=== PATIENT | male | born 1955 | race Two or more races ===

== ENCOUNTER 2021-10-10 18:12 | Emergency (ER) | payer MEDICARE, OTHER ==
[~2021-10-10] VITALS: Ht 175.3 cm; Wt 90.7 kg
[2021-10-10 19:16] LABS: Basophils # (auto) 0 10 ^3/uL (0-0.2); Basophils % (auto) 0.6 % (0.0-2.0); Eosinophils # (auto) 0 10 ^3/uL (0-0.8); Eosinophils % (auto) 0.4 % (0.0-7.0); Hematocrit 41.3 % (41.0-53.0); Hemoglobin 14.7 g/dL (13.5-17.5); Lymphocytes # (auto) 0.5 10 ^3/uL (0.4-5.4); Lymphocytes % (auto) 8.7 % (10.0-50.0); Mean Corpuscular Hemoglobin 33.6 pg (28.0-32.0); Mean Corpuscular Hgb Conc. 35.7 g/dL (32.0-36.0); Mean Corpuscular Volume 94.2 fL (80.0-100.0); Monocytes # (auto) 0.4 10 ^3/uL (0-1.3); Monocytes % (auto) 6.2 % (0.0-12.0); Neutrophils % (auto) 84.1 % (37.0-80.0); Red Blood Cells 4.38 10^6/uL (4.5-5.90); Red Cell Distribution Width 13.5 % (11.8-14.3); White Blood Cell 5.9 10^3/uL (4.4-10.8)
[2021-10-10 19:36] LABS: Albumin 3.3 g/dL (3.4-5.0); Calcium 8.4 mg/dL (8.5-10.1); Potassium 3.4 mmol/L (3.5-5.1)
[2021-10-10 19:40] LABS: BUN/Creatinine Ratio 13.3; Total Protein 7.2 g/dL (6.4-8.2)
[2021-10-10 20:53] VITALS: BP 136/70
== END 2021-10-10 21:07 | disposition home or self-care (01) ==
LOC: ER 18:12 → EDBD 18:12 → ER 20:45
DX: R56.9 Unspecified convulsions (principal); R41.82 Altered mental status, unspecified; E11.9 Type 2 diabetes mellitus without complications
CPT/HCPCS: 36415; 70450; 80053; 80320; 85025

== ENCOUNTER 2021-12-07 17:08 | Inpatient (IN) | payer MEDICARE, OTHER ==
[~2021-12-07] VITALS: Ht 170.2 cm; Wt 101.6 kg
[2021-12-07] MEDS ORDERED: ROCURONIUM 10MG/ML 10ML VIAL IV ONE ×2 (17:27→17:45)
[2021-12-07] MEDS ORDERED: ETOMIDATE (2MG/ML) 20ML VIAL IV ONE ×2 (17:27→17:45)
[2021-12-07] MEDS ORDERED: IOHEXOL 300 MG/ML 100ML BOTTLE IJ ONE (17:38)
[2021-12-07] MEDS ORDERED: PROPOFOL 100 ML IV SCH (17:45)
[2021-12-07] MEDS ORDERED: DEXTROSE 50% SYRINGE 50 ML IV ONE (18:10)
[2021-12-07] MEDS ORDERED: D5W/SOD CHLO 0.9% 1,000 ML IV ONE (18:30)
[2021-12-07] MEDS ORDERED: ACETAMINOPHEN 650 mg PER 20.3 mL UD GT ONE (19:00)
[2021-12-07] MEDS ORDERED: DEXTROSE (50%) 50ML SYRG IV ONE (19:00)
[2021-12-07 19:26] LABS: Urine Bacteria NONE SEEN /hpf (None Seen); Urine Blood TRACE /uL (Negative); Urine Mucus FEW (None Seen); Urine Specific Gravity 1.023 (1.001-1.035); Urine WBC 5 /hpf (0 - 3)
[2021-12-07 19:29] LABS: Basophils # (auto) 0 10 ^3/uL (0-0.2); Basophils % (auto) 0.2 % (0.0-2.0); Eosinophils # (auto) 0 10 ^3/uL (0-0.8); Hematocrit 48.4 % (41.0-53.0); Hemoglobin 16.4 g/dL (13.5-17.5); Lymphocytes # (auto) 0.4 10 ^3/uL (0.4-5.4); Lymphocytes % (auto) 4.3 % (10.0-50.0); Mean Corpuscular Hemoglobin 33.4 pg (28.0-32.0); Mean Corpuscular Hgb Conc. 33.9 g/dL (32.0-36.0); Mean Corpuscular Volume 98.6 fL (80.0-100.0); Monocytes # (auto) 0.8 10 ^3/uL (0-1.3); Monocytes % (auto) 7.5 % (0.0-12.0); Neutrophils # (auto) 9.3 10 ^3/uL (1.6-8.6); Red Blood Cells 4.91 10^6/uL (4.5-5.90); Red Cell Distribution Width 13.2 % (11.8-14.3); White Blood Cell 10.5 10^3/uL (4.4-10.8)
[2021-12-07 19:44] LABS: Alcohol, Urine < 3.0 mg/dL (0-10); Barbiturate Scree,Urine NEGATIVE (NEGATIVE); Benzodiazephine Screen, Urine NEGATIVE (NEGATIVE); Cannabinoid Screen, Urine POSITIVE (NEGATIVE); Cocaine Screen, Urine NEGATIVE (NEGATIVE); Opiate Scree,Urine NEGATIVE (NEGATIVE); Phencyclidine Screen, Urine NEGATIVE (NEGATIVE)
[2021-12-07 19:48] LABS: INR 1.34 (0.9-1.15); Partial Thromboplastin Time 24.5 sec (23.6-33.0)
[2021-12-07 19:51] LABS: Albumin 2.9 g/dL (3.4-5.0); Calcium 8.5 mg/dL (8.5-10.1); Magnesium 2.1 mg/dL (1.6-2.6); Potassium 3.2 mmol/L (3.5-5.1)
[2021-12-07 19:53] LABS: Amphetamine Screen, Urine NEGATIVE (NEGATIVE)
[2021-12-07 19:54] LABS: BUN/Creatinine Ratio 16.9; Bilirubin, Total 2.9 mg/dL (0.2-1.0); Phosphorus 4.9 mg/dL (2.5-4.90); Total Protein 7.2 g/dL (6.4-8.2)
[2021-12-07 20:00] VITALS: BP_SYST 165; BP_SYST 93; BP_DIAS 68; BP_DIAS 99
[2021-12-07] MEDS ORDERED: POTASSIUM CHL 20MEQ/100ML 100 ML IV ONE (20:15)
[2021-12-07] MEDS ORDERED: fentaNYL Drip 2500mCg/250mlNS 250 ML IV ONE (20:31)
[2021-12-07] MEDS: fentaNYL Drip 2500mCg/250mlNS 250 ML IV SCH (20:44)
[2021-12-07] MEDS ORDERED: POTASSIUM EFFERVESENT TAB 25 MEQ GT ONE (21:15)
[2021-12-07] MEDS ORDERED: VANCOMYCIN 1GM/250ML 250 ML IV ONE (21:30)
[2021-12-07] MEDS ORDERED: CEFTRIAXONE SODIUM 2 GM in D5W 5% 50 ML IV ONE (21:30)
[2021-12-07] MEDS ORDERED: AMPICILLIN SOD 2GM INJ 2 GM in SODIUM CHL 0.9% 100 ML IV ONE (21:30)
[2021-12-07] MEDS ORDERED: DexAMETHasone SOD PHOS 10MG/1ML VIAL INJ IV ONE (21:30)
[2021-12-07 22:00] VITALS: BP 129/109
[2021-12-07] MEDS ORDERED: VANCOMYCIN PER PHARMACY 0 MG IV SCH (22:30)
[2021-12-07] MEDS ORDERED: ALBUMIN 25% 100 ML IV ONE (22:30)
[2021-12-07] MEDS ORDERED: ONDANSETRON HCL 4 MG/2 ML VIAL IV PRN (22:30)
[2021-12-07] MEDS ORDERED: DEXTROSE (50%) 50ML SYRG IV PRN (22:30)
[2021-12-07] MEDS ORDERED: ACETAMINOPHEN 650 MG RECT SUPP PR PRN (22:30)
[2021-12-07] MEDS ORDERED: MIDAZOLAM DRIP 50 mg/50mL 50 ML IV ONE (23:30)
[2021-12-07] MEDS ORDERED: NITROGLYCERIN 0.4 MG SL TAB SL PRN (23:45)
[2021-12-07] MEDS ORDERED: MORPHINE SULFATE INJ 2 MG/ml SYRG IV PRN (23:45)
[2021-12-08] VITALS (69 sets, daily range): BP systolic 83–129; BP diastolic 56–74
[2021-12-08] MEDS ORDERED: LACTULOSE 10g/15ml SOLN 473ML PR SCH
[2021-12-08] MEDS: MIDAZOLAM DRIP 50 mg/50mL 50 ML IV SCH ×5 (00:02→21:50)
[2021-12-08] MEDS ORDERED: cefTRIAXone SOD 1,000 MG VL ONE (01:00)
[2021-12-08] MEDS: LACTULOSE 20Gm/30ML SOLN GT SCH ×3 (05:53→17:57)
[2021-12-08] MEDS: ACCU-CHEK COMFORT CURVE STRIP VI SCH ×4 (06:49→22:00)
[2021-12-08] MEDS: InsuLIN REG 1unit/0.01ml Soln (100units/ml) SC SCH ×2 (06:52→11:54)
[2021-12-08 07:40] LABS: Basophils # (auto) 0 10 ^3/uL (0-0.2); Eosinophils # (auto) 0 10 ^3/uL (0-0.8); Monocytes # (auto) 0.6 10 ^3/uL (0-1.3); Red Cell Distribution Width 13.7 % (11.8-14.3)
[2021-12-08 07:45] LABS: Basophils % (auto) 0.2 % (0.0-2.0); Hematocrit 43.1 % (41.0-53.0); Hemoglobin 14.7 g/dL (13.5-17.5); Lymphocytes # (auto) 0.9 10 ^3/uL (0.4-5.4); Lymphocytes % (auto) 9.5 % (10.0-50.0); Mean Corpuscular Hemoglobin 34.2 pg (28.0-32.0); Mean Corpuscular Hgb Conc. 34.1 g/dL (32.0-36.0); Mean Corpuscular Volume 100.3 fL (80.0-100.0); Monocytes % (auto) 6.4 % (0.0-12.0); Neutrophils # (auto) 7.7 10 ^3/uL (1.6-8.6); Neutrophils % (auto) 83.9 % (37.0-80.0); White Blood Cell 9.1 10^3/uL (4.4-10.8)
[2021-12-08 07:57] LABS: Potassium 3.6 mmol/L (3.5-5.1)
[2021-12-08 08:05] LABS: Albumin 2.8 g/dL (3.4-5.0); Bilirubin, Total 2.6 mg/dL (0.2-1.0); Calcium 7.9 mg/dL (8.5-10.1); Total Protein 6.5 g/dL (6.4-8.2)
[2021-12-08] MEDS ORDERED: VANCOMYCIN 1GM/250ML 250 ML IV ONE (09:15)
[2021-12-08] MEDS ORDERED: CEFTRIAXONE SODIUM 2 GM in D5W 5% 50 ML IV SCH (10:00)
[2021-12-08] MEDS ORDERED: FAMOTIDINE (10MG/ML) 2ML VL IV ONE (10:30)
[2021-12-08] MEDS: ENOXAPARIN SOD 40 MG/0.4 ML SYRINGE SC SCH (10:52)
[2021-12-08] MEDS: PIPERACILLIN-TAZOB 3.375GM 100 ML IV SCH ×2 (11:53→17:57)
[2021-12-08] MEDS ORDERED: ACETAMINOPHEN 650 mg PER 20.3 mL UD PO PRN (17:45)
[2021-12-08] MEDS: fentaNYL Drip 2500mCg/250mlNS 250 ML IV SCH (18:10)
[2021-12-08] MEDS: SODIUM CHLORIDE 0.9% 1,000 ML IV SCH (18:11)
[2021-12-08] MEDS: VANCOMYCIN 1GM/250ML 250 ML IV SCH (19:54)
[2021-12-08] MEDS ORDERED: InsuLIN REG 1unit/0.01ml Soln (100units/ml) SC SCH (22:00)
[2021-12-09] VITALS (98 sets, daily range): BP systolic 81–148; BP diastolic 50–89
[2021-12-09] MEDS: PIPERACILLIN-TAZOB 3.375GM 100 ML IV SCH ×5 (00:19→23:36)
[2021-12-09 04:33] LABS: Basophils # (auto) 0 10 ^3/uL (0-0.2); Lymphocytes # (auto) 0.8 10 ^3/uL (0.4-5.4); Monocytes # (auto) 0.5 10 ^3/uL (0-1.3)
[2021-12-09 04:36] LABS: Basophils % (auto) 0.7 % (0.0-2.0); Eosinophils # (auto) 0 10 ^3/uL (0-0.8); Eosinophils % (auto) 0.7 % (0.0-7.0); Hematocrit 41.6 % (41.0-53.0); Hemoglobin 14.3 g/dL (13.5-17.5); Lymphocytes % (auto) 12.7 % (10.0-50.0); Mean Corpuscular Hemoglobin 35.2 pg (28.0-32.0); Mean Corpuscular Hgb Conc. 34.4 g/dL (32.0-36.0); Mean Corpuscular Volume 102.1 fL (80.0-100.0); Monocytes % (auto) 7.8 % (0.0-12.0); Neutrophils # (auto) 4.9 10 ^3/uL (1.6-8.6); Neutrophils % (auto) 78.1 % (37.0-80.0); Red Blood Cells 4.07 10^6/uL (4.5-5.90); Red Cell Distribution Width 13.8 % (11.8-14.3); White Blood Cell 6.3 10^3/uL (4.4-10.8)
[2021-12-09] MEDS: VANCOMYCIN 1GM/250ML 250 ML IV SCH (04:54)
[2021-12-09 05:01] LABS: Albumin 2.4 g/dL (3.4-5.0); Calcium 7.5 mg/dL (8.5-10.1); Potassium 3.3 mmol/L (3.5-5.1)
[2021-12-09 05:04] LABS: BUN/Creatinine Ratio 35.4; Bilirubin, Direct 1.6 mg/dL (0-0.2); Bilirubin, Total 2.3 mg/dL (0.2-1.0); Phosphorus 1.9 mg/dL (2.5-4.90); Total Protein 6.1 g/dL (6.4-8.2)
[2021-12-09] MEDS: ACCU-CHEK COMFORT CURVE STRIP VI SCH ×4 (06:52→22:04)
[2021-12-09] MEDS: ENOXAPARIN SOD 40 MG/0.4 ML SYRINGE SC SCH (09:20)
[2021-12-09] MEDS: MIDAZOLAM DRIP 50 mg/50mL 50 ML IV SCH (09:20)
[2021-12-09] MEDS: FAMOTIDINE (10MG/ML) 2ML VL IV SCH (09:20)
[2021-12-09] MEDS: SODIUM CHLORIDE 0.9% 1,000 ML IV SCH (10:40)
[2021-12-09] MEDS ORDERED: POTASSIUM CHL 20MEQ/100ML 100 ML IV ONE (12:00)
[2021-12-09] MEDS ORDERED: VANCOMYCIN 1GM/250ML 250 ML IV SCH (13:00)
[2021-12-09] MEDS: ACETAMINOPHEN 650 mg PER 20.3 mL UD PO PRN ×2 (16:40→22:37)
[2021-12-10] VITALS (48 sets, daily range): BP systolic 100–150; BP diastolic 51–92
[2021-12-10 04:05] LABS: Basophils # (auto) 0 10 ^3/uL (0-0.2); Basophils % (auto) 0.6 % (0.0-2.0); Eosinophils # (auto) 0.1 10 ^3/uL (0-0.8); Eosinophils % (auto) 1.1 % (0.0-7.0); Hematocrit 45.7 % (41.0-53.0); Hemoglobin 15.3 g/dL (13.5-17.5); Lymphocytes % (auto) 14.5 % (10.0-50.0); Mean Corpuscular Hemoglobin 33.8 pg (28.0-32.0); Mean Corpuscular Hgb Conc. 33.4 g/dL (32.0-36.0); Mean Corpuscular Volume 101.1 fL (80.0-100.0); Monocytes # (auto) 0.6 10 ^3/uL (0-1.3); Monocytes % (auto) 9.1 % (0.0-12.0); Neutrophils # (auto) 5.3 10 ^3/uL (1.6-8.6); Neutrophils % (auto) 74.7 % (37.0-80.0); Red Blood Cells 4.52 10^6/uL (4.5-5.90); Red Cell Distribution Width 13.3 % (11.8-14.3); White Blood Cell 7.1 10^3/uL (4.4-10.8)
[2021-12-10 04:34] LABS: Albumin 2.2 g/dL (3.4-5.0); Bilirubin, Direct 1.7 mg/dL (0-0.2); Potassium 3.7 mmol/L (3.5-5.1)
[2021-12-10 04:37] LABS: BUN/Creatinine Ratio 31.7; Bilirubin, Total 2.4 mg/dL (0.2-1.0); Total Protein 6.5 g/dL (6.4-8.2)
[2021-12-10] MEDS: PIPERACILLIN-TAZOB 3.375GM 100 ML IV SCH ×3 (05:47→17:30)
[2021-12-10] MEDS: ACCU-CHEK COMFORT CURVE STRIP VI SCH ×4 (05:47→21:49)
[2021-12-10] MEDS: SODIUM CHLORIDE 0.9% 1,000 ML IV SCH (05:59)
[2021-12-10] MEDS: fentaNYL Drip 2500mCg/250mlNS 250 ML IV SCH ×2 (07:41→20:15)
[2021-12-10] MEDS: FAMOTIDINE (10MG/ML) 2ML VL IV SCH (09:32)
[2021-12-10] MEDS: ENOXAPARIN SOD 40 MG/0.4 ML SYRINGE SC SCH (09:32)
[2021-12-10] MEDS ORDERED: DEXTROSE (50%) 50ML SYRG IV PRN (12:00)
[2021-12-10] MEDS: InsuLIN REG 1unit/0.01ml Soln (100units/ml) SC SCH ×2 (17:24→21:50)
[2021-12-10] MEDS: ACETAMINOPHEN 650 mg PER 20.3 mL UD PO PRN (21:49)
[2021-12-10] MEDS: MIDAZOLAM DRIP 50 mg/50mL 50 ML IV SCH (23:30)
[2021-12-11] VITALS (39 sets, daily range): BP systolic 104–152; BP diastolic 67–115
[2021-12-11] MEDS: PIPERACILLIN-TAZOB 3.375GM 100 ML IV SCH ×4 (00:13→17:26)
[2021-12-11 04:18] LABS: Basophils # (auto) 0 10 ^3/uL (0-0.2); Basophils % (auto) 0.4 % (0.0-2.0); Eosinophils # (auto) 0.1 10 ^3/uL (0-0.8); Eosinophils % (auto) 1.5 % (0.0-7.0); Hemoglobin 15.1 g/dL (13.5-17.5); Lymphocytes # (auto) 1.1 10 ^3/uL (0.4-5.4); Lymphocytes % (auto) 16.2 % (10.0-50.0); Mean Corpuscular Hemoglobin 33.9 pg (28.0-32.0); Mean Corpuscular Hgb Conc. 33.5 g/dL (32.0-36.0); Monocytes # (auto) 0.8 10 ^3/uL (0-1.3); Monocytes % (auto) 11.2 % (0.0-12.0); Neutrophils % (auto) 70.7 % (37.0-80.0); Nucleated Red Blood Cells % 0.1 %; Red Blood Cells 4.46 10^6/uL (4.5-5.90); Red Cell Distribution Width 13.6 % (11.8-14.3); White Blood Cell 7.1 10^3/uL (4.4-10.8)
[2021-12-11] MEDS: SODIUM CHLORIDE 0.9% 1,000 ML IV SCH ×2 (04:35→12:24)
[2021-12-11 04:46] LABS: Albumin 2.1 g/dL (3.4-5.0); BUN/Creatinine Ratio 33.3; Bilirubin, Total 2.2 mg/dL (0.2-1.0); Calcium 8.2 mg/dL (8.5-10.1); Total Protein 6.4 g/dL (6.4-8.2)
[2021-12-11] MEDS: InsuLIN REG 1unit/0.01ml Soln (100units/ml) SC SCH ×4 (05:39→22:12)
[2021-12-11] MEDS: ACCU-CHEK COMFORT CURVE STRIP VI SCH ×4 (05:39→22:09)
[2021-12-11] MEDS: FAMOTIDINE (10MG/ML) 2ML VL IV SCH (08:37)
[2021-12-11] MEDS: ENOXAPARIN SOD 40 MG/0.4 ML SYRINGE SC SCH (08:37)
[2021-12-11] MEDS: ACETAMINOPHEN 650 mg PER 20.3 mL UD PO PRN (12:24)
[2021-12-11] MEDS: fentaNYL Drip 2500mCg/250mlNS 250 ML IV SCH (19:34)
[2021-12-11] MEDS ORDERED: PHENYTOIN DILANTIN IV ONE (20:45)
[2021-12-11] MEDS ORDERED: SODIUM CHL 0.9% IV ONE (20:45)
[2021-12-11] MEDS ORDERED: LORazepam 2MG/ML-1ML VIAL ONE (22:43)
[2021-12-11] MEDS: MIDAZOLAM DRIP 50 mg/50mL 50 ML IV SCH (23:30)
[2021-12-12] VITALS (94 sets, daily range): BP systolic 120–151; BP diastolic 51–88
[2021-12-12] MEDS: PIPERACILLIN-TAZOB 3.375GM 100 ML IV SCH ×4 (00:19→17:24)
[2021-12-12] MEDS: PHENYTOIN SODIUM 50 MG/ML 2ML VIAL IV SCH ×4 (00:19→21:40)
[2021-12-12 05:20] LABS: Albumin 2.2 g/dL (3.4-5.0); BUN/Creatinine Ratio 41.2; Basophils # (auto) 0 10 ^3/uL (0-0.2); Basophils % (auto) 0.1 % (0.0-2.0); Bilirubin, Direct 1.2 mg/dL (0-0.2); Bilirubin, Total 1.4 mg/dL (0.2-1.0); Calcium 8.2 mg/dL (8.5-10.1); Eosinophils # (auto) 0 10 ^3/uL (0-0.8); Hematocrit 41.8 % (41.0-53.0); Hemoglobin 14.3 g/dL (13.5-17.5); Lymphocytes # (auto) 0.6 10 ^3/uL (0.4-5.4); Lymphocytes % (auto) 8.7 % (10.0-50.0); Mean Corpuscular Hemoglobin 34.2 pg (28.0-32.0); Mean Corpuscular Hgb Conc. 34.2 g/dL (32.0-36.0); Mean Corpuscular Volume 100.2 fL (80.0-100.0); Monocytes # (auto) 0.7 10 ^3/uL (0-1.3); Neutrophils % (auto) 82.2 % (37.0-80.0); Potassium 3.9 mmol/L (3.5-5.1); Red Blood Cells 4.17 10^6/uL (4.5-5.90); Red Cell Distribution Width 13.3 % (11.8-14.3); Total Protein 6.6 g/dL (6.4-8.2); White Blood Cell 7.3 10^3/uL (4.4-10.8)
[2021-12-12] MEDS: SODIUM CHLORIDE 0.9% 1,000 ML IV SCH ×2 (05:20→22:00)
[2021-12-12] MEDS: ACCU-CHEK COMFORT CURVE STRIP VI SCH ×4 (05:57→21:41)
[2021-12-12] MEDS: InsuLIN REG 1unit/0.01ml Soln (100units/ml) SC SCH ×4 (05:59→21:48)
[2021-12-12] MEDS: FAMOTIDINE (10MG/ML) 2ML VL IV SCH (09:34)
[2021-12-12] MEDS: ENOXAPARIN SOD 40 MG/0.4 ML SYRINGE SC SCH (09:34)
[2021-12-12] MEDS ORDERED: LACTULOSE 20Gm/30ML SOLN NG ONE (11:30)
[2021-12-12 11:39] LABS: INR 1.32 (0.9-1.15)
[2021-12-12] MEDS: FOLIC ACID 1 MG, MULTIPLE VITAMIN 10 ML, MAGNESIUM SULF SDV 50% 8 MEQ, THIAMINE INJ 100... INJ SCH ×5 (12:43)
[2021-12-12] MEDS: ACETAMINOPHEN 650 mg PER 20.3 mL UD PO PRN (17:25)
[2021-12-12] MEDS: fentaNYL Drip 2500mCg/250mlNS 250 ML IV SCH (20:15)
[2021-12-12] MEDS: LACTULOSE 20Gm/30ML SOLN NG SCH (21:40)
[2021-12-12] MEDS: MIDAZOLAM DRIP 50 mg/50mL 50 ML IV SCH (23:30)
[2021-12-13] VITALS (101 sets, daily range): BP systolic 89–239; BP diastolic 47–176
[2021-12-13] MEDS: PIPERACILLIN-TAZOB 3.375GM 100 ML IV SCH ×4 (00:47→18:01)
[2021-12-13] MEDS: LORazepam 2MG/ML-1ML VIAL IV PRN ×2 (02:59→03:14)
[2021-12-13] MEDS: MIDAZOLAM DRIP 50 mg/50mL 50 ML IV SCH (03:22)
[2021-12-13 04:17] LABS: Basophils # (auto) 0 10 ^3/uL (0-0.2); Basophils % (auto) 0.3 % (0.0-2.0); Eosinophils # (auto) 0 10 ^3/uL (0-0.8); Eosinophils % (auto) 0.2 % (0.0-7.0); Hematocrit 40.5 % (41.0-53.0); Hemoglobin 13.7 g/dL (13.5-17.5); Lymphocytes % (auto) 12.9 % (10.0-50.0); Mean Corpuscular Hgb Conc. 33.9 g/dL (32.0-36.0); Mean Corpuscular Volume 100.3 fL (80.0-100.0); Monocytes % (auto) 12.3 % (0.0-12.0); Neutrophils # (auto) 5.9 10 ^3/uL (1.6-8.6); Neutrophils % (auto) 74.3 % (37.0-80.0); Red Blood Cells 4.04 10^6/uL (4.5-5.90); Red Cell Distribution Width 12.9 % (11.8-14.3); White Blood Cell 7.9 10^3/uL (4.4-10.8)
[2021-12-13 04:34] LABS: Albumin 2.1 g/dL (3.4-5.0); Calcium 8.3 mg/dL (8.5-10.1); Potassium 3.5 mmol/L (3.5-5.1)
[2021-12-13 04:35] LABS: BUN/Creatinine Ratio 40.8
[2021-12-13 04:38] LABS: Bilirubin, Total 1.2 mg/dL (0.2-1.0); Total Protein 6.1 g/dL (6.4-8.2)
[2021-12-13 04:45] LABS: Bilirubin, Direct 0.9 mg/dL (0-0.2)
[2021-12-13] MEDS: fentaNYL Drip 2500mCg/250mlNS 250 ML IV SCH (04:53)
[2021-12-13] MEDS: PHENYTOIN SODIUM 50 MG/ML 2ML VIAL IV SCH ×3 (06:13→21:54)
[2021-12-13] MEDS: ACCU-CHEK COMFORT CURVE STRIP VI SCH ×4 (06:13→21:54)
[2021-12-13] MEDS: InsuLIN REG 1unit/0.01ml Soln (100units/ml) SC SCH ×4 (06:16→21:54)
[2021-12-13] MEDS: LACTULOSE 20Gm/30ML SOLN NG SCH ×2 (09:51→21:54)
[2021-12-13] MEDS: FAMOTIDINE (10MG/ML) 2ML VL IV SCH (09:51)
[2021-12-13] MEDS: ENOXAPARIN SOD 40 MG/0.4 ML SYRINGE SC SCH (09:52)
[2021-12-13] MEDS: FOLIC ACID 1 MG, MULTIPLE VITAMIN 10 ML, MAGNESIUM SULF SDV 50% 8 MEQ, THIAMINE INJ 100... INJ SCH ×5 (12:00)
[2021-12-13] MEDS: SODIUM CHLORIDE 0.9% 1,000 ML IV SCH (15:08)
[2021-12-14] VITALS (102 sets, daily range): BP systolic 93–128; BP diastolic 58–81
[2021-12-14] MEDS: PIPERACILLIN-TAZOB 3.375GM 100 ML IV SCH ×5 (00:03→23:39)
[2021-12-14] MEDS: MIDAZOLAM DRIP 50 mg/50mL 50 ML IV SCH ×4 (00:07→20:55)
[2021-12-14 04:04] LABS: Basophils # (auto) 0 10 ^3/uL (0-0.2); Basophils % (auto) 0.6 % (0.0-2.0); Eosinophils # (auto) 0.1 10 ^3/uL (0-0.8); Monocytes # (auto) 0.6 10 ^3/uL (0-1.3); Neutrophils # (auto) 5.1 10 ^3/uL (1.6-8.6); Red Cell Distribution Width 13.1 % (11.8-14.3); White Blood Cell 7.1 10^3/uL (4.4-10.8)
[2021-12-14 04:08] LABS: Eosinophils % (auto) 1.2 % (0.0-7.0); Hematocrit 37.1 % (41.0-53.0); Lymphocytes # (auto) 1.3 10 ^3/uL (0.4-5.4); Lymphocytes % (auto) 18.6 % (10.0-50.0); Mean Corpuscular Hemoglobin 35.4 pg (28.0-32.0); Monocytes % (auto) 7.9 % (0.0-12.0); Neutrophils % (auto) 71.7 % (37.0-80.0); Red Blood Cells 3.68 10^6/uL (4.5-5.90)
[2021-12-14 04:21] LABS: Albumin 1.9 g/dL (3.4-5.0); Calcium 7.7 mg/dL (8.5-10.1); Potassium 3.5 mmol/L (3.5-5.1)
[2021-12-14 04:28] LABS: Bilirubin, Direct 0.7 mg/dL (0-0.2); Bilirubin, Total 1.1 mg/dL (0.2-1.0); Total Protein 5.8 g/dL (6.4-8.2)
[2021-12-14] MEDS: PHENYTOIN SODIUM 50 MG/ML 2ML VIAL IV SCH (06:00)
[2021-12-14] MEDS: InsuLIN REG 1unit/0.01ml Soln (100units/ml) SC SCH ×4 (06:10→21:44)
[2021-12-14] MEDS: ACCU-CHEK COMFORT CURVE STRIP VI SCH ×4 (06:10→21:44)
[2021-12-14] MEDS: fentaNYL Drip 2500mCg/250mlNS 250 ML IV SCH (06:10)
[2021-12-14] MEDS: LACTULOSE 20Gm/30ML SOLN NG SCH ×3 (09:36→21:44)
[2021-12-14] MEDS: FAMOTIDINE (10MG/ML) 2ML VL IV SCH (09:36)
[2021-12-14] MEDS: ENOXAPARIN SOD 40 MG/0.4 ML SYRINGE SC SCH (09:36)
[2021-12-14] MEDS: FOLIC ACID 1 MG, MULTIPLE VITAMIN 10 ML, MAGNESIUM SULF SDV 50% 8 MEQ, THIAMINE INJ 100... INJ SCH ×5 (11:57)
[2021-12-14] MEDS: SODIUM CHLORIDE 0.9% 1,000 ML IV SCH (17:40)
[2021-12-15] VITALS (99 sets, daily range): BP systolic 101–145; BP diastolic 64–91
[2021-12-15 03:51] LABS: Basophils # (auto) 0 10 ^3/uL (0-0.2); Basophils % (auto) 0.6 % (0.0-2.0); Eosinophils # (auto) 0.1 10 ^3/uL (0-0.8); Eosinophils % (auto) 1.2 % (0.0-7.0); Hematocrit 39.3 % (41.0-53.0); Hemoglobin 13.4 g/dL (13.5-17.5); Lymphocytes # (auto) 1.2 10 ^3/uL (0.4-5.4); Lymphocytes % (auto) 15.6 % (10.0-50.0); Mean Corpuscular Hemoglobin 34.3 pg (28.0-32.0); Mean Corpuscular Hgb Conc. 34.1 g/dL (32.0-36.0); Mean Corpuscular Volume 100.5 fL (80.0-100.0); Monocytes # (auto) 0.5 10 ^3/uL (0-1.3); Monocytes % (auto) 7.1 % (0.0-12.0); Neutrophils # (auto) 5.6 10 ^3/uL (1.6-8.6); Neutrophils % (auto) 75.5 % (37.0-80.0); Nucleated Red Blood Cells % 0.1 %; Red Blood Cells 3.91 10^6/uL (4.5-5.90); White Blood Cell 7.4 10^3/uL (4.4-10.8)
[2021-12-15 03:57] LABS: Albumin 1.9 g/dL (3.4-5.0); Calcium 7.5 mg/dL (8.5-10.1); Potassium 3.2 mmol/L (3.5-5.1)
[2021-12-15 04:00] LABS: BUN/Creatinine Ratio 41.3; Bilirubin, Direct 0.6 mg/dL (0-0.2)
[2021-12-15] MEDS: MIDAZOLAM DRIP 50 mg/50mL 50 ML IV SCH ×4 (05:12→23:01)
[2021-12-15] MEDS: PIPERACILLIN-TAZOB 3.375GM 100 ML IV SCH ×3 (05:46→17:57)
[2021-12-15] MEDS: LACTULOSE 20Gm/30ML SOLN NG SCH ×3 (05:46→21:19)
[2021-12-15] MEDS: ACCU-CHEK COMFORT CURVE STRIP VI SCH ×4 (06:03→21:50)
[2021-12-15] MEDS: InsuLIN REG 1unit/0.01ml Soln (100units/ml) SC SCH ×4 (06:03→22:00)
[2021-12-15] MEDS: POTASSIUM CHL 20MEQ/100ML 100 ML IV SCH ×2 (09:58→12:10)
[2021-12-15] MEDS: ENOXAPARIN SOD 40 MG/0.4 ML SYRINGE SC SCH (09:59)
[2021-12-15] MEDS: FAMOTIDINE (10MG/ML) 2ML VL IV SCH (09:59)
[2021-12-15] MEDS ORDERED: POTASSIUM CHL 20 Meq TABLET PO SCH (10:00)
[2021-12-15] MEDS: FOLIC ACID 1 MG, MULTIPLE VITAMIN 10 ML, MAGNESIUM SULF SDV 50% 8 MEQ, THIAMINE INJ 100... INJ SCH ×5 (13:01)
[2021-12-15] MEDS: POTASSIUM EFFERVESENT TAB 25 MEQ GT SCH ×2 (13:33→21:18)
[2021-12-15] MEDS: SODIUM CHLORIDE 0.9% 1,000 ML IV SCH ×2 (16:40)
[2021-12-15] MEDS: PHENYTOIN SODIUM 50 MG/ML 2ML VIAL IV SCH (21:20)
[2021-12-15] MEDS ORDERED: LORazepam 2MG/ML-1ML VIAL ONE (23:06)
[2021-12-16] VITALS (104 sets, daily range): BP systolic 96–130; BP diastolic 61–85
[2021-12-16] MEDS: MIDAZOLAM DRIP 50 mg/50mL 50 ML IV SCH ×5 (03:00→19:41)
[2021-12-16] MEDS: fentaNYL Drip 2500mCg/250mlNS 250 ML IV SCH (04:04)
[2021-12-16] MEDS: LACTULOSE 20Gm/30ML SOLN NG SCH ×3 (06:13→22:04)
[2021-12-16] MEDS: InsuLIN REG 1unit/0.01ml Soln (100units/ml) SC SCH ×4 (06:13→22:00)
[2021-12-16] MEDS: PIPERACILLIN-TAZOB 3.375GM 100 ML IV SCH ×5 (06:13→23:48)
[2021-12-16] MEDS: PHENYTOIN SODIUM 50 MG/ML 2ML VIAL IV SCH ×3 (06:13→22:08)
[2021-12-16] MEDS: ACCU-CHEK COMFORT CURVE STRIP VI SCH ×4 (06:14→22:04)
[2021-12-16 07:23] LABS: BUN/Creatinine Ratio 37.1; Calcium 7.8 mg/dL (8.5-10.1); Potassium 3.7 mmol/L (3.5-5.1)
[2021-12-16 08:50] LABS: INR 1.21 (0.9-1.15)
[2021-12-16] MEDS: SODIUM CHLORIDE 0.9% 1,000 ML IV SCH (11:05)
[2021-12-16] MEDS: ENOXAPARIN SOD 40 MG/0.4 ML SYRINGE SC SCH (11:15)
[2021-12-16] MEDS: FAMOTIDINE (10MG/ML) 2ML VL IV SCH (11:15)
[2021-12-16] MEDS: PROPOFOL 100 ML IV SCH ×2 (11:24→19:41)
[2021-12-16] MEDS: FOLIC ACID 1 MG, MULTIPLE VITAMIN 10 ML, MAGNESIUM SULF SDV 50% 8 MEQ, THIAMINE INJ 100... INJ SCH ×5 (14:30)
[2021-12-16] MEDS ORDERED: PHENYTOIN SODIUM 50 MG/ML 2ML VIAL IV ONE (15:00)
[2021-12-16] MEDS ORDERED: PHENobarbital SODIUM 65 MG/ML VL IV ONE (23:00)
[2021-12-17] VITALS (79 sets, daily range): BP systolic 94–139; BP diastolic 59–84
[2021-12-17 04:09] LABS: Basophils # (auto) 0.1 10 ^3/uL (0-0.2); Basophils % (auto) 0.6 % (0.0-2.0); Eosinophils # (auto) 0.1 10 ^3/uL (0-0.8); Eosinophils % (auto) 1.5 % (0.0-7.0); Hematocrit 40.3 % (41.0-53.0); Hemoglobin 13.4 g/dL (13.5-17.5); Lymphocytes % (auto) 12.1 % (10.0-50.0); Mean Corpuscular Hemoglobin 33.5 pg (28.0-32.0); Mean Corpuscular Hgb Conc. 33.2 g/dL (32.0-36.0); Mean Corpuscular Volume 101.1 fL (80.0-100.0); Monocytes # (auto) 0.4 10 ^3/uL (0-1.3); Monocytes % (auto) 4.7 % (0.0-12.0); Neutrophils # (auto) 6.7 10 ^3/uL (1.6-8.6); Neutrophils % (auto) 81.1 % (37.0-80.0); Nucleated Red Blood Cells % 0.1 %; Red Blood Cells 3.99 10^6/uL (4.5-5.90); Red Cell Distribution Width 13.1 % (11.8-14.3); White Blood Cell 8.3 10^3/uL (4.4-10.8)
[2021-12-17] MEDS: MIDAZOLAM DRIP 50 mg/50mL 50 ML IV SCH ×5 (04:29→16:02)
[2021-12-17] MEDS: PROPOFOL 100 ML IV SCH ×2 (04:29→11:05)
[2021-12-17] MEDS: fentaNYL Drip 2500mCg/250mlNS 250 ML IV SCH (04:32)
[2021-12-17 04:35] LABS: Albumin 1.8 g/dL (3.4-5.0); Potassium 3.8 mmol/L (3.5-5.1)
[2021-12-17 04:39] LABS: BUN/Creatinine Ratio 21.1; Bilirubin, Total 0.9 mg/dL (0.2-1.0); Total Protein 5.6 g/dL (6.4-8.2)
[2021-12-17 05:10] LABS: Bilirubin, Direct 0.7 mg/dL (0-0.2)
[2021-12-17] MEDS: PHENYTOIN SODIUM 50 MG/ML 2ML VIAL IV SCH ×3 (06:11→22:37)
[2021-12-17] MEDS: LACTULOSE 20Gm/30ML SOLN NG SCH ×3 (06:11→22:36)
[2021-12-17] MEDS: PIPERACILLIN-TAZOB 3.375GM 100 ML IV SCH ×3 (06:11→17:43)
[2021-12-17] MEDS: ACCU-CHEK COMFORT CURVE STRIP VI SCH ×4 (06:11→22:00)
[2021-12-17] MEDS: InsuLIN REG 1unit/0.01ml Soln (100units/ml) SC SCH ×4 (06:12→22:00)
[2021-12-17] MEDS: SODIUM CHLORIDE 0.9% 1,000 ML IV SCH ×2 (08:08→18:40)
[2021-12-17] MEDS: FAMOTIDINE (10MG/ML) 2ML VL IV SCH (09:52)
[2021-12-17] MEDS: ASPirin 81 mg TAB PO SCH (09:54)
[2021-12-17] MEDS: ENOXAPARIN SOD 40 MG/0.4 ML SYRINGE SC SCH (09:55)
[2021-12-17] MEDS: PHENobarbital SODIUM 65 MG/ML VL IV SCH (09:58)
[2021-12-17] MEDS: FOLIC ACID 1 MG, MULTIPLE VITAMIN 10 ML, MAGNESIUM SULF SDV 50% 8 MEQ, THIAMINE INJ 100... INJ SCH ×5 (13:35)
[2021-12-17] MEDS: SODIUM CHLOR 0.9% PF (SALINE LOCK) 10ML VIAL/SYR IV SCH (22:37)
[2021-12-18] VITALS (105 sets, daily range): BP systolic 117–152; BP diastolic 68–85
[2021-12-18] MEDS: PIPERACILLIN-TAZOB 3.375GM 100 ML IV SCH ×2 (00:09→05:41)
[2021-12-18] MEDS: MIDAZOLAM DRIP 50 mg/50mL 50 ML IV SCH ×5 (01:42→22:08)
[2021-12-18 04:13] LABS: Basophils # (auto) 0 10 ^3/uL (0-0.2); Basophils % (auto) 0.5 % (0.0-2.0); Eosinophils # (auto) 0.1 10 ^3/uL (0-0.8); Eosinophils % (auto) 1.3 % (0.0-7.0); Hematocrit 39.2 % (41.0-53.0); Hemoglobin 13.3 g/dL (13.5-17.5); Lymphocytes # (auto) 0.8 10 ^3/uL (0.4-5.4); Lymphocytes % (auto) 9.3 % (10.0-50.0); Mean Corpuscular Hemoglobin 33.6 pg (28.0-32.0); Mean Corpuscular Hgb Conc. 34.1 g/dL (32.0-36.0); Mean Corpuscular Volume 98.7 fL (80.0-100.0); Monocytes # (auto) 0.5 10 ^3/uL (0-1.3); Monocytes % (auto) 5.3 % (0.0-12.0); Neutrophils # (auto) 7.3 10 ^3/uL (1.6-8.6); Neutrophils % (auto) 83.6 % (37.0-80.0); Red Blood Cells 3.97 10^6/uL (4.5-5.90); Red Cell Distribution Width 12.8 % (11.8-14.3); White Blood Cell 8.8 10^3/uL (4.4-10.8)
[2021-12-18 04:29] LABS: Albumin 1.6 g/dL (3.4-5.0); Calcium 7.5 mg/dL (8.5-10.1); Potassium 3.9 mmol/L (3.5-5.1)
[2021-12-18 04:33] LABS: Bilirubin, Direct 0.7 mg/dL (0-0.2); Total Protein 5.7 g/dL (6.4-8.2)
[2021-12-18] MEDS: PROPOFOL 100 ML IV SCH ×2 (05:19→16:19)
[2021-12-18] MEDS: fentaNYL Drip 2500mCg/250mlNS 250 ML IV SCH (05:20)
[2021-12-18] MEDS: LACTULOSE 20Gm/30ML SOLN NG SCH ×3 (05:39→22:15)
[2021-12-18] MEDS: PHENYTOIN SODIUM 50 MG/ML 2ML VIAL IV SCH ×3 (05:40→22:05)
[2021-12-18] MEDS: InsuLIN REG 1unit/0.01ml Soln (100units/ml) SC SCH ×4 (07:00→22:00)
[2021-12-18] MEDS: ACCU-CHEK COMFORT CURVE STRIP VI SCH ×4 (07:21→22:17)
[2021-12-18] MEDS: FAMOTIDINE (10MG/ML) 2ML VL IV SCH (10:07)
[2021-12-18] MEDS: ENOXAPARIN SOD 40 MG/0.4 ML SYRINGE SC SCH (10:07)
[2021-12-18] MEDS: ASPirin 81 mg TAB PO SCH (10:07)
[2021-12-18] MEDS: PHENobarbital SODIUM 65 MG/ML VL IV SCH (10:15)
[2021-12-18] MEDS: SODIUM CHLOR 0.9% PF (SALINE LOCK) 10ML VIAL/SYR IV SCH ×2 (10:15→22:15)
[2021-12-18] MEDS ORDERED: PHENYTOIN IV DILANTIN 300 MG in SODIUM CHL 0.9% 50 ML IV ONE (11:30)
[2021-12-18] MEDS: FOLIC ACID 1 MG, MULTIPLE VITAMIN 10 ML, MAGNESIUM SULF SDV 50% 8 MEQ, THIAMINE INJ 100... INJ SCH ×5 (12:55)
[2021-12-19] VITALS (106 sets, daily range): BP systolic 114–164; BP diastolic 71–101
[2021-12-19] MEDS: MIDAZOLAM DRIP 50 mg/50mL 50 ML IV SCH ×5 (03:54→22:00)
[2021-12-19] MEDS: SODIUM CHLORIDE 0.9% 1,000 ML IV SCH ×2 (04:00→20:40)
[2021-12-19 04:17] LABS: Basophils # (auto) 0.1 10 ^3/uL (0-0.2); Basophils % (auto) 0.6 % (0.0-2.0); Eosinophils # (auto) 0.1 10 ^3/uL (0-0.8); Eosinophils % (auto) 0.7 % (0.0-7.0); Hematocrit 40.5 % (41.0-53.0); Hemoglobin 13.9 g/dL (13.5-17.5); Lymphocytes % (auto) 9.9 % (10.0-50.0); Mean Corpuscular Hemoglobin 33.6 pg (28.0-32.0); Mean Corpuscular Hgb Conc. 34.3 g/dL (32.0-36.0); Mean Corpuscular Volume 98.1 fL (80.0-100.0); Monocytes # (auto) 0.7 10 ^3/uL (0-1.3); Monocytes % (auto) 6.6 % (0.0-12.0); Neutrophils # (auto) 8.6 10 ^3/uL (1.6-8.6); Neutrophils % (auto) 82.2 % (37.0-80.0); Red Blood Cells 4.13 10^6/uL (4.5-5.90); Red Cell Distribution Width 12.8 % (11.8-14.3); White Blood Cell 10.5 10^3/uL (4.4-10.8)
[2021-12-19 04:37] LABS: Albumin 1.8 g/dL (3.4-5.0); Bilirubin, Direct 0.8 mg/dL (0-0.2); Calcium 7.6 mg/dL (8.5-10.1); Potassium 3.8 mmol/L (3.5-5.1)
[2021-12-19 04:40] LABS: BUN/Creatinine Ratio 15.4; Total Protein 6.2 g/dL (6.4-8.2)
[2021-12-19] MEDS: PHENYTOIN SODIUM 50 MG/ML 2ML VIAL IV SCH ×3 (06:35→22:34)
[2021-12-19] MEDS: LACTULOSE 20Gm/30ML SOLN NG SCH ×3 (06:36→22:35)
[2021-12-19] MEDS: InsuLIN REG 1unit/0.01ml Soln (100units/ml) SC SCH ×4 (07:00→22:15)
[2021-12-19] MEDS: ACCU-CHEK COMFORT CURVE STRIP VI SCH ×4 (07:16→22:15)
[2021-12-19] MEDS: PHENobarbital SODIUM 65 MG/ML VL IV SCH (09:23)
[2021-12-19] MEDS: ASPirin 81 mg TAB PO SCH (09:23)
[2021-12-19] MEDS: FAMOTIDINE (10MG/ML) 2ML VL IV SCH (09:23)
[2021-12-19] MEDS: ENOXAPARIN SOD 40 MG/0.4 ML SYRINGE SC SCH (09:24)
[2021-12-19] MEDS: FOLIC ACID 1 MG, MULTIPLE VITAMIN 10 ML, MAGNESIUM SULF SDV 50% 8 MEQ, THIAMINE INJ 100... INJ SCH ×5 (09:30)
[2021-12-19] MEDS: SODIUM CHLOR 0.9% PF (SALINE LOCK) 10ML VIAL/SYR IV SCH ×2 (10:05→22:00)
[2021-12-19] MEDS: fentaNYL Drip 2500mCg/250mlNS 250 ML IV SCH (11:30)
[2021-12-19] MEDS: PROPOFOL 100 ML IV SCH ×2 (13:09→17:36)
[2021-12-19] MEDS ORDERED: PHENobarbital SODIUM 130 MG/ML VL IV ONE (15:15)
[2021-12-20] VITALS (109 sets, daily range): BP systolic 117–166; BP diastolic 66–89
[2021-12-20] MEDS: MIDAZOLAM DRIP 50 mg/50mL 50 ML IV SCH ×3 (01:44→14:09)
[2021-12-20 04:40] LABS: Basophils # (auto) 0.1 10 ^3/uL (0-0.2); Basophils % (auto) 1.3 % (0.0-2.0); Eosinophils # (auto) 0.2 10 ^3/uL (0-0.8); Eosinophils % (auto) 2.2 % (0.0-7.0); Hematocrit 35.8 % (41.0-53.0); Hemoglobin 12.5 g/dL (13.5-17.5); Lymphocytes % (auto) 14.7 % (10.0-50.0); Mean Corpuscular Hemoglobin 34.5 pg (28.0-32.0); Mean Corpuscular Volume 98.6 fL (80.0-100.0); Monocytes # (auto) 0.6 10 ^3/uL (0-1.3); Monocytes % (auto) 8.6 % (0.0-12.0); Neutrophils # (auto) 5.1 10 ^3/uL (1.6-8.6); Neutrophils % (auto) 73.2 % (37.0-80.0); Red Blood Cells 3.63 10^6/uL (4.5-5.90)
[2021-12-20 04:56] LABS: Albumin 1.6 g/dL (3.4-5.0); Calcium 7.4 mg/dL (8.5-10.1); Potassium 3.6 mmol/L (3.5-5.1)
[2021-12-20 05:00] LABS: Bilirubin, Direct 0.5 mg/dL (0-0.2); Bilirubin, Total 0.7 mg/dL (0.2-1.0); Total Protein 5.4 g/dL (6.4-8.2)
[2021-12-20] MEDS: LACTULOSE 20Gm/30ML SOLN NG SCH ×3 (05:27→21:35)
[2021-12-20] MEDS: PHENYTOIN SODIUM 50 MG/ML 2ML VIAL IV SCH ×3 (05:27→21:36)
[2021-12-20] MEDS: InsuLIN REG 1unit/0.01ml Soln (100units/ml) SC SCH ×4 (05:28→21:46)
[2021-12-20] MEDS: ACCU-CHEK COMFORT CURVE STRIP VI SCH ×4 (05:28→21:46)
[2021-12-20] MEDS: PROPOFOL 100 ML IV SCH ×2 (08:51→14:09)
[2021-12-20] MEDS ORDERED: FOLIC ACID 1 MG, MULTIPLE VITAMIN 10 ML, MAGNESIUM SULF SDV 50% 8 MEQ, THIAMINE INJ 100... INJ SCH ×5 (09:00)
[2021-12-20] MEDS: PHENobarbital SODIUM 65 MG/ML VL IV SCH (09:02)
[2021-12-20] MEDS: ASPirin 81 mg TAB PO SCH (09:02)
[2021-12-20] MEDS: FAMOTIDINE (10MG/ML) 2ML VL IV SCH (09:02)
[2021-12-20] MEDS: SODIUM CHLOR 0.9% PF (SALINE LOCK) 10ML VIAL/SYR IV SCH ×2 (09:03→21:36)
[2021-12-20] MEDS ORDERED: NutriHep RTU 240 mL Unflavored GT SCH (09:45)
[2021-12-20] MEDS: FOLIC ACID 1 MG, MULTIPLE VITAMIN 10 ML, MAGNESIUM SULF SDV 50% 8 MEQ, THIAMINE INJ 100... INJ SCH ×5 (10:45)
[2021-12-20] MEDS ORDERED: FUROSEMIDE 20 MG/2 ML VIAL IV ONE (11:15)
[2021-12-20] MEDS: fentaNYL Drip 2500mCg/250mlNS 250 ML IV SCH (11:30)
[2021-12-20] MEDS: SODIUM CHLORIDE 0.9% 1,000 ML IV SCH (13:20)
[2021-12-21] VITALS (105 sets, daily range): BP systolic 131–170; BP diastolic 72–91
[2021-12-21 03:41] LABS: Albumin 1.7 g/dL (3.4-5.0)
[2021-12-21 03:46] LABS: Bilirubin, Total 0.8 mg/dL (0.2-1.0); Total Protein 5.7 g/dL (6.4-8.2)
[2021-12-21 04:43] LABS: Bilirubin, Direct 0.5 mg/dL (0-0.2)
[2021-12-21] MEDS: SODIUM CHLORIDE 0.9% 1,000 ML IV SCH ×2 (06:00→22:55)
[2021-12-21] MEDS: PHENYTOIN SODIUM 50 MG/ML 2ML VIAL IV SCH ×3 (06:00→21:52)
[2021-12-21] MEDS: LACTULOSE 20Gm/30ML SOLN NG SCH ×3 (06:00→21:52)
[2021-12-21] MEDS: ACCU-CHEK COMFORT CURVE STRIP VI SCH ×4 (06:38→21:54)
[2021-12-21] MEDS: InsuLIN REG 1unit/0.01ml Soln (100units/ml) SC SCH ×4 (06:38→21:53)
[2021-12-21] MEDS: FAMOTIDINE (10MG/ML) 2ML VL IV SCH (10:00)
[2021-12-21] MEDS: PHENobarbital SODIUM 65 MG/ML VL IV SCH ×2 (10:00→15:04)
[2021-12-21] MEDS: SODIUM CHLOR 0.9% PF (SALINE LOCK) 10ML VIAL/SYR IV SCH ×2 (10:01→21:52)
[2021-12-21] MEDS: ASPirin 81 mg TAB PO SCH (10:01)
[2021-12-21] MEDS: PROPOFOL 100 ML IV SCH ×2 (10:01→18:50)
[2021-12-21] MEDS: fentaNYL Drip 2500mCg/250mlNS 250 ML IV SCH (11:30)
[2021-12-21] MEDS: FOLIC ACID 1 MG, MULTIPLE VITAMIN 10 ML, MAGNESIUM SULF SDV 50% 8 MEQ, THIAMINE INJ 100... INJ SCH ×5 (11:43)
[2021-12-21] MEDS: MIDAZOLAM DRIP 50 mg/50mL 50 ML IV SCH (23:30)
[2021-12-22] VITALS (108 sets, daily range): BP systolic 116–161; BP diastolic 56–86
[2021-12-22] MEDS: ACETAMINOPHEN 650 mg PER 20.3 mL UD PO PRN (00:10)
[2021-12-22] MEDS: PROPOFOL 100 ML IV SCH ×2 (02:05→17:32)
[2021-12-22 03:34] LABS: Basophils # (auto) 0.1 10 ^3/uL (0-0.2); Basophils % (auto) 0.7 % (0.0-2.0); Eosinophils # (auto) 0.1 10 ^3/uL (0-0.8); Eosinophils % (auto) 0.9 % (0.0-7.0); Hematocrit 40.5 % (41.0-53.0); Hemoglobin 13.7 g/dL (13.5-17.5); Lymphocytes # (auto) 0.9 10 ^3/uL (0.4-5.4); Mean Corpuscular Hemoglobin 33.5 pg (28.0-32.0); Mean Corpuscular Hgb Conc. 33.9 g/dL (32.0-36.0); Mean Corpuscular Volume 98.7 fL (80.0-100.0); Monocytes # (auto) 0.8 10 ^3/uL (0-1.3); Monocytes % (auto) 9.2 % (0.0-12.0); Neutrophils # (auto) 6.9 10 ^3/uL (1.6-8.6); Neutrophils % (auto) 79.2 % (37.0-80.0); Red Blood Cells 4.11 10^6/uL (4.5-5.90); Red Cell Distribution Width 12.9 % (11.8-14.3); White Blood Cell 8.8 10^3/uL (4.4-10.8)
[2021-12-22 03:39] LABS: Calcium 7.5 mg/dL (8.5-10.1); Potassium 3.3 mmol/L (3.5-5.1)
[2021-12-22 03:42] LABS: BUN/Creatinine Ratio 10.6
[2021-12-22] MEDS: PHENYTOIN SODIUM 50 MG/ML 2ML VIAL IV SCH ×3 (05:51→21:40)
[2021-12-22] MEDS: LACTULOSE 20Gm/30ML SOLN NG SCH ×3 (05:51→21:40)
[2021-12-22] MEDS: ACCU-CHEK COMFORT CURVE STRIP VI SCH ×4 (05:51→21:40)
[2021-12-22] MEDS: InsuLIN REG 1unit/0.01ml Soln (100units/ml) SC SCH ×4 (05:52→21:39)
[2021-12-22] MEDS: FAMOTIDINE (10MG/ML) 2ML VL IV SCH (10:40)
[2021-12-22] MEDS: ASPirin 81 mg TAB PO SCH (10:40)
[2021-12-22] MEDS: SODIUM CHLOR 0.9% PF (SALINE LOCK) 10ML VIAL/SYR IV SCH ×2 (10:41→21:35)
[2021-12-22] MEDS: PHENobarbital SODIUM 65 MG/ML VL IV SCH (10:41)
[2021-12-22] MEDS: FOLIC ACID 1 MG, MULTIPLE VITAMIN 10 ML, MAGNESIUM SULF SDV 50% 8 MEQ, THIAMINE INJ 100... INJ SCH ×15 (10:45→13:17)
[2021-12-22] MEDS: MIDAZOLAM DRIP 50 mg/50mL 50 ML IV SCH ×2 (11:29→16:38)
[2021-12-22] MEDS: fentaNYL Drip 2500mCg/250mlNS 250 ML IV SCH (11:30)
[2021-12-22] MEDS: POTASSIUM CHL 20MEQ/100ML 100 ML IV SCH ×2 (11:39→13:21)
[2021-12-22] MEDS: SODIUM CHLORIDE 0.9% 1,000 ML IV SCH (13:25)
[2021-12-22 20:44] LABS: Cholesterol 141 mg/dL (< 200); HDL Cholesterol 17 mg/dL (40-59); LDL Cholesterol 107 mg/dL (< 100); Triglycerides 208 mg/dL (< 150)
[2021-12-23] VITALS (104 sets, daily range): BP systolic 114–143; BP diastolic 75–90
[2021-12-23] MEDS: MIDAZOLAM DRIP 50 mg/50mL 50 ML IV SCH ×2 (03:04→16:00)
[2021-12-23] MEDS: Jevity 1.2 Cal/Fiber 1 Liter GT SCH (03:04)
[2021-12-23] MEDS: PROPOFOL 100 ML IV SCH ×3 (03:04→18:49)
[2021-12-23 05:01] LABS: Albumin 1.7 g/dL (3.4-5.0); Bilirubin, Direct 0.6 mg/dL (0-0.2); Bilirubin, Total 0.7 mg/dL (0.2-1.0); Total Protein 5.9 g/dL (6.4-8.2)
[2021-12-23] MEDS: PHENYTOIN SODIUM 50 MG/ML 2ML VIAL IV SCH ×3 (05:52→21:53)
[2021-12-23] MEDS: LACTULOSE 20Gm/30ML SOLN NG SCH ×3 (05:53→21:53)
[2021-12-23] MEDS: ACCU-CHEK COMFORT CURVE STRIP VI SCH ×4 (05:53→21:53)
[2021-12-23] MEDS: InsuLIN REG 1unit/0.01ml Soln (100units/ml) SC SCH ×4 (05:54→21:54)
[2021-12-23 07:37] LABS: BUN/Creatinine Ratio 10.3; Calcium 7.8 mg/dL (8.5-10.1); Potassium 3.7 mmol/L (3.5-5.1)
[2021-12-23] MEDS: SODIUM CHLORIDE 0.9% 1,000 ML IV SCH (08:23)
[2021-12-23] MEDS: ASPirin 81 mg TAB PO SCH (09:22)
[2021-12-23] MEDS: FAMOTIDINE (10MG/ML) 2ML VL IV SCH (09:22)
[2021-12-23] MEDS: PHENobarbital SODIUM 65 MG/ML VL IV SCH (09:22)
[2021-12-23] MEDS: SODIUM CHLOR 0.9% PF (SALINE LOCK) 10ML VIAL/SYR IV SCH ×2 (09:23→21:53)
[2021-12-23] MEDS: fentaNYL Drip 2500mCg/250mlNS 250 ML IV SCH (11:30)
[2021-12-23] MEDS: FOLIC ACID 1 MG, MULTIPLE VITAMIN 10 ML, MAGNESIUM SULF SDV 50% 8 MEQ, THIAMINE INJ 100... INJ SCH ×5 (12:02)
[2021-12-23] MEDS ORDERED: ATORVASTATIN 20 MG TAB PO SCH (22:00)
[2021-12-24] VITALS (96 sets, daily range): BP systolic 111–149; BP diastolic 68–87
[2021-12-24] MEDS: SODIUM CHLORIDE 0.9% 1,000 ML IV SCH ×2 (02:01→18:46)
[2021-12-24] MEDS: PROPOFOL 100 ML IV SCH ×3 (02:01→18:47)
[2021-12-24] MEDS: MIDAZOLAM DRIP 50 mg/50mL 50 ML IV SCH ×3 (02:02→23:39)
[2021-12-24 04:29] LABS: Basophils # (auto) 0.1 10 ^3/uL (0-0.2); Basophils % (auto) 1.1 % (0.0-2.0); Eosinophils # (auto) 0.2 10 ^3/uL (0-0.8); Hematocrit 39.4 % (41.0-53.0); Hemoglobin 13.3 g/dL (13.5-17.5); Lymphocytes # (auto) 0.9 10 ^3/uL (0.4-5.4); Lymphocytes % (auto) 10.9 % (10.0-50.0); Mean Corpuscular Hemoglobin 33.1 pg (28.0-32.0); Mean Corpuscular Hgb Conc. 33.7 g/dL (32.0-36.0); Mean Corpuscular Volume 98.3 fL (80.0-100.0); Monocytes # (auto) 0.6 10 ^3/uL (0-1.3); Monocytes % (auto) 7.7 % (0.0-12.0); Neutrophils # (auto) 6.4 10 ^3/uL (1.6-8.6); Neutrophils % (auto) 78.3 % (37.0-80.0); Red Blood Cells 4.01 10^6/uL (4.5-5.90); Red Cell Distribution Width 13.1 % (11.8-14.3); White Blood Cell 8.2 10^3/uL (4.4-10.8)
[2021-12-24 04:58] LABS: Albumin 1.6 g/dL (3.4-5.0); BUN/Creatinine Ratio 8.3; Calcium 7.6 mg/dL (8.5-10.1); Potassium 3.6 mmol/L (3.5-5.1)
[2021-12-24 05:01] LABS: Bilirubin, Total 0.7 mg/dL (0.2-1.0); Total Protein 5.7 g/dL (6.4-8.2)
[2021-12-24] MEDS: PHENYTOIN SODIUM 50 MG/ML 2ML VIAL IV SCH ×3 (05:30→22:11)
[2021-12-24] MEDS: LACTULOSE 20Gm/30ML SOLN NG SCH ×3 (05:30→22:11)
[2021-12-24] MEDS: ACCU-CHEK COMFORT CURVE STRIP VI SCH ×4 (05:31→22:12)
[2021-12-24] MEDS: InsuLIN REG 1unit/0.01ml Soln (100units/ml) SC SCH ×4 (05:32→22:13)
[2021-12-24] MEDS: ASPirin 81 mg TAB PO SCH (09:58)
[2021-12-24] MEDS: FAMOTIDINE (10MG/ML) 2ML VL IV SCH (09:58)
[2021-12-24] MEDS: PHENobarbital SODIUM 65 MG/ML VL IV SCH (10:02)
[2021-12-24] MEDS: SODIUM CHLOR 0.9% PF (SALINE LOCK) 10ML VIAL/SYR IV SCH ×2 (10:02→22:12)
[2021-12-24] MEDS: fentaNYL Drip 2500mCg/250mlNS 250 ML IV SCH (11:30)
[2021-12-24] MEDS: FOLIC ACID 1 MG, MULTIPLE VITAMIN 10 ML, MAGNESIUM SULF SDV 50% 8 MEQ, THIAMINE INJ 100... INJ SCH ×5 (12:46)
[2021-12-24 15:56] LABS: Bilirubin, Direct 0.4 mg/dL (0-0.2)
[2021-12-25] VITALS (94 sets, daily range): BP systolic 122–157; BP diastolic 73–97
[2021-12-25] MEDS: PROPOFOL 100 ML IV SCH ×4 (03:36→20:22)
[2021-12-25 04:15] LABS: Basophils # (auto) 0.1 10 ^3/uL (0-0.2); Basophils % (auto) 0.7 % (0.0-2.0); Eosinophils # (auto) 0.2 10 ^3/uL (0-0.8); Hemoglobin 13.4 g/dL (13.5-17.5); Lymphocytes # (auto) 1.1 10 ^3/uL (0.4-5.4); Lymphocytes % (auto) 13.1 % (10.0-50.0); Mean Corpuscular Hemoglobin 33.2 pg (28.0-32.0); Mean Corpuscular Hgb Conc. 33.5 g/dL (32.0-36.0); Mean Corpuscular Volume 98.9 fL (80.0-100.0); Monocytes # (auto) 0.6 10 ^3/uL (0-1.3); Neutrophils # (auto) 6.3 10 ^3/uL (1.6-8.6); Neutrophils % (auto) 77.2 % (37.0-80.0); Red Blood Cells 4.05 10^6/uL (4.5-5.90); Red Cell Distribution Width 12.5 % (11.8-14.3); White Blood Cell 8.2 10^3/uL (4.4-10.8)
[2021-12-25 04:31] LABS: Albumin 1.6 g/dL (3.4-5.0); Calcium 7.8 mg/dL (8.5-10.1); Potassium 3.7 mmol/L (3.5-5.1)
[2021-12-25 04:35] LABS: BUN/Creatinine Ratio 12.1; Bilirubin, Direct 0.5 mg/dL (0-0.2); Bilirubin, Total 0.8 mg/dL (0.2-1.0); Total Protein 6.1 g/dL (6.4-8.2)
[2021-12-25] MEDS: PHENYTOIN SODIUM 50 MG/ML 2ML VIAL IV SCH ×3 (04:43→22:17)
[2021-12-25] MEDS: LACTULOSE 20Gm/30ML SOLN NG SCH ×3 (04:43→22:17)
[2021-12-25] MEDS: ACCU-CHEK COMFORT CURVE STRIP VI SCH ×4 (04:44→22:17)
[2021-12-25] MEDS: InsuLIN REG 1unit/0.01ml Soln (100units/ml) SC SCH ×4 (04:45→22:00)
[2021-12-25] MEDS: SODIUM CHLORIDE 0.9% 1,000 ML IV SCH (10:12)
[2021-12-25] MEDS: ASPirin 81 mg TAB PO SCH (10:13)
[2021-12-25] MEDS: FAMOTIDINE (10MG/ML) 2ML VL IV SCH (10:13)
[2021-12-25] MEDS: SODIUM CHLOR 0.9% PF (SALINE LOCK) 10ML VIAL/SYR IV SCH ×2 (10:21→22:18)
[2021-12-25] MEDS: PHENobarbital SODIUM 65 MG/ML VL IV SCH (10:21)
[2021-12-25] MEDS: fentaNYL Drip 2500mCg/250mlNS 250 ML IV SCH (11:30)
[2021-12-25] MEDS: FOLIC ACID 1 MG, MULTIPLE VITAMIN 10 ML, MAGNESIUM SULF SDV 50% 8 MEQ, THIAMINE INJ 100... INJ SCH ×5 (12:34)
[2021-12-25] MEDS: MIDAZOLAM DRIP 50 mg/50mL 50 ML IV SCH (17:43)
[2021-12-26] VITALS (107 sets, daily range): BP systolic 89–146; BP diastolic 71–89
[2021-12-26] MEDS: MIDAZOLAM DRIP 50 mg/50mL 50 ML IV SCH ×3 (02:39→18:44)
[2021-12-26 03:45] LABS: Basophils # (auto) 0.1 10 ^3/uL (0-0.2); Eosinophils # (auto) 0.2 10 ^3/uL (0-0.8); Eosinophils % (auto) 2.5 % (0.0-7.0); Hematocrit 39.5 % (41.0-53.0); Hemoglobin 13.4 g/dL (13.5-17.5); Lymphocytes # (auto) 1.2 10 ^3/uL (0.4-5.4); Lymphocytes % (auto) 14.5 % (10.0-50.0); Mean Corpuscular Hemoglobin 33.1 pg (28.0-32.0); Mean Corpuscular Volume 97.3 fL (80.0-100.0); Monocytes # (auto) 0.6 10 ^3/uL (0-1.3); Monocytes % (auto) 8.1 % (0.0-12.0); Neutrophils # (auto) 5.9 10 ^3/uL (1.6-8.6); Neutrophils % (auto) 73.9 % (37.0-80.0); Nucleated Red Blood Cells % 0.1 %; Red Blood Cells 4.06 10^6/uL (4.5-5.90); Red Cell Distribution Width 12.5 % (11.8-14.3)
[2021-12-26 04:08] LABS: Albumin 1.6 g/dL (3.4-5.0); Calcium 7.9 mg/dL (8.5-10.1); Potassium 3.8 mmol/L (3.5-5.1)
[2021-12-26] MEDS: PROPOFOL 100 ML IV SCH ×4 (04:10→21:40)
[2021-12-26 04:12] LABS: BUN/Creatinine Ratio 8.8; Bilirubin, Direct 0.6 mg/dL (0-0.2); Bilirubin, Total 0.8 mg/dL (0.2-1.0); Total Protein 6.1 g/dL (6.4-8.2)
[2021-12-26] MEDS: LACTULOSE 20Gm/30ML SOLN NG SCH ×3 (05:16→21:35)
[2021-12-26] MEDS: PHENYTOIN SODIUM 50 MG/ML 2ML VIAL IV SCH ×3 (05:17→21:36)
[2021-12-26] MEDS: ACCU-CHEK COMFORT CURVE STRIP VI SCH ×4 (06:24→21:39)
[2021-12-26] MEDS: InsuLIN REG 1unit/0.01ml Soln (100units/ml) SC SCH ×4 (06:24→21:38)
[2021-12-26] MEDS: ASPirin 81 mg TAB PO SCH (10:09)
[2021-12-26] MEDS: FAMOTIDINE (10MG/ML) 2ML VL IV SCH (10:09)
[2021-12-26] MEDS: SODIUM CHLOR 0.9% PF (SALINE LOCK) 10ML VIAL/SYR IV SCH ×2 (10:09→21:38)
[2021-12-26] MEDS: fentaNYL Drip 2500mCg/250mlNS 250 ML IV SCH (11:30)
[2021-12-26] MEDS: FOLIC ACID 1 MG, MULTIPLE VITAMIN 10 ML, MAGNESIUM SULF SDV 50% 8 MEQ, THIAMINE INJ 100... INJ SCH ×5 (12:14)
[2021-12-26] MEDS: PHENobarbital SODIUM 65 MG/ML VL IV SCH (12:31)
[2021-12-27] VITALS (106 sets, daily range): BP systolic 108–165; BP diastolic 70–116
[2021-12-27 04:04] LABS: Basophils # (auto) 0.1 10 ^3/uL (0-0.2); Basophils % (auto) 0.7 % (0.0-2.0); Eosinophils # (auto) 0.2 10 ^3/uL (0-0.8); Eosinophils % (auto) 2.1 % (0.0-7.0); Hematocrit 39.5 % (41.0-53.0); Hemoglobin 13.4 g/dL (13.5-17.5); Lymphocytes % (auto) 12.5 % (10.0-50.0); Mean Corpuscular Hgb Conc. 33.8 g/dL (32.0-36.0); Mean Corpuscular Volume 97.6 fL (80.0-100.0); Monocytes # (auto) 0.7 10 ^3/uL (0-1.3); Monocytes % (auto) 8.1 % (0.0-12.0); Neutrophils # (auto) 6.4 10 ^3/uL (1.6-8.6); Neutrophils % (auto) 76.6 % (37.0-80.0); Red Blood Cells 4.05 10^6/uL (4.5-5.90); Red Cell Distribution Width 12.8 % (11.8-14.3); White Blood Cell 8.3 10^3/uL (4.4-10.8)
[2021-12-27 04:24] LABS: Albumin 1.7 g/dL (3.4-5.0); Potassium 3.8 mmol/L (3.5-5.1)
[2021-12-27 04:28] LABS: BUN/Creatinine Ratio 12.2; Bilirubin, Direct 0.7 mg/dL (0-0.2); Bilirubin, Total 0.9 mg/dL (0.2-1.0); Total Protein 6.2 g/dL (6.4-8.2)
[2021-12-27] MEDS: LACTULOSE 20Gm/30ML SOLN NG SCH ×3 (05:33→22:01)
[2021-12-27] MEDS: PHENYTOIN SODIUM 50 MG/ML 2ML VIAL IV SCH ×3 (05:33→22:01)
[2021-12-27] MEDS: MIDAZOLAM DRIP 50 mg/50mL 50 ML IV SCH ×2 (05:34→18:03)
[2021-12-27] MEDS: PROPOFOL 100 ML IV SCH ×3 (05:35→22:00)
[2021-12-27] MEDS: ACCU-CHEK COMFORT CURVE STRIP VI SCH ×4 (05:37→22:09)
[2021-12-27] MEDS: InsuLIN REG 1unit/0.01ml Soln (100units/ml) SC SCH ×4 (05:44→22:19)
[2021-12-27] MEDS ORDERED: PHENYTOIN SODIUM 50 MG/ML 2ML VIAL IV ONE (09:30)
[2021-12-27] MEDS: FAMOTIDINE (10MG/ML) 2ML VL IV SCH (10:36)
[2021-12-27] MEDS: ASPirin 81 mg TAB PO SCH (10:36)
[2021-12-27] MEDS: PHENobarbital SODIUM 65 MG/ML VL IV SCH (11:14)
[2021-12-27] MEDS: SODIUM CHLOR 0.9% PF (SALINE LOCK) 10ML VIAL/SYR IV SCH ×2 (11:20→22:09)
[2021-12-27] MEDS: fentaNYL Drip 2500mCg/250mlNS 250 ML IV SCH (11:30)
[2021-12-27] MEDS: FOLIC ACID 1 MG, MULTIPLE VITAMIN 10 ML, MAGNESIUM SULF SDV 50% 8 MEQ, THIAMINE INJ 100... INJ SCH ×5 (15:44)
[2021-12-28] VITALS (105 sets, daily range): BP systolic 116–145; BP diastolic 66–88
[2021-12-28 04:14] LABS: Albumin 1.7 g/dL (3.4-5.0); BUN/Creatinine Ratio 18.9; Calcium 7.7 mg/dL (8.5-10.1); Potassium 3.8 mmol/L (3.5-5.1)
[2021-12-28 04:17] LABS: Bilirubin, Total 0.7 mg/dL (0.2-1.0); Total Protein 5.8 g/dL (6.4-8.2)
[2021-12-28] MEDS: MIDAZOLAM DRIP 50 mg/50mL 50 ML IV SCH ×3 (05:55→18:31)
[2021-12-28] MEDS: LACTULOSE 20Gm/30ML SOLN NG SCH ×3 (05:55→22:36)
[2021-12-28] MEDS: PHENYTOIN SODIUM 50 MG/ML 2ML VIAL IV SCH ×3 (05:55→22:36)
[2021-12-28] MEDS: ACCU-CHEK COMFORT CURVE STRIP VI SCH ×4 (05:56→22:36)
[2021-12-28] MEDS: InsuLIN REG 1unit/0.01ml Soln (100units/ml) SC SCH ×4 (05:58→22:40)
[2021-12-28] MEDS: PROPOFOL 100 ML IV SCH ×3 (06:00→15:57)
[2021-12-28] MEDS: ASPirin 81 mg TAB PO SCH (09:34)
[2021-12-28] MEDS: FAMOTIDINE (10MG/ML) 2ML VL IV SCH (09:34)
[2021-12-28] MEDS: PHENobarbital SODIUM 130 MG/ML VL IV SCH (09:34)
[2021-12-28] MEDS: SODIUM CHLOR 0.9% PF (SALINE LOCK) 10ML VIAL/SYR IV SCH ×2 (09:34→22:36)
[2021-12-28] MEDS: fentaNYL Drip 2500mCg/250mlNS 250 ML IV SCH (11:22)
[2021-12-28] MEDS: FOLIC ACID 1 MG, MULTIPLE VITAMIN 10 ML, MAGNESIUM SULF SDV 50% 8 MEQ, THIAMINE INJ 100... INJ SCH ×5 (12:14)
[2021-12-28] MEDS: Jevity 1.2 Cal/Fiber 1 Liter GT SCH (15:25)
[2021-12-29] VITALS (107 sets, daily range): BP systolic 118–154; BP diastolic 65–94
[2021-12-29] MEDS: PHENYTOIN SODIUM 50 MG/ML 2ML VIAL IV SCH ×3 (06:05→22:14)
[2021-12-29] MEDS: ACCU-CHEK COMFORT CURVE STRIP VI SCH ×4 (06:05→22:16)
[2021-12-29] MEDS: LACTULOSE 20Gm/30ML SOLN NG SCH ×3 (06:05→22:14)
[2021-12-29] MEDS: InsuLIN REG 1unit/0.01ml Soln (100units/ml) SC SCH ×4 (06:10→22:27)
[2021-12-29] MEDS: PROPOFOL 100 ML IV SCH ×4 (06:15→22:15)
[2021-12-29] MEDS: MIDAZOLAM DRIP 50 mg/50mL 50 ML IV SCH ×2 (08:48→17:18)
[2021-12-29] MEDS: PHENobarbital SODIUM 130 MG/ML VL IV SCH (09:51)
[2021-12-29] MEDS: FAMOTIDINE (10MG/ML) 2ML VL IV SCH (09:51)
[2021-12-29] MEDS: ASPirin 81 mg TAB PO SCH (09:51)
[2021-12-29] MEDS: fentaNYL Drip 2500mCg/250mlNS 250 ML IV SCH (09:52)
[2021-12-29] MEDS: SODIUM CHLOR 0.9% PF (SALINE LOCK) 10ML VIAL/SYR IV SCH ×2 (09:52→22:15)
[2021-12-29] MEDS: FOLIC ACID 1 MG, MULTIPLE VITAMIN 10 ML, MAGNESIUM SULF SDV 50% 8 MEQ, THIAMINE INJ 100... INJ SCH ×5 (12:28)
[2021-12-29] MEDS: Jevity 1.2 Cal/Fiber 1 Liter GT SCH (15:48)
[2021-12-30] VITALS (90 sets, daily range): BP systolic 112–153; BP diastolic 60–91
[2021-12-30] MEDS: MIDAZOLAM DRIP 50 mg/50mL 50 ML IV SCH (02:20)
[2021-12-30 03:54] LABS: Basophils # (auto) 0 10 ^3/uL (0-0.2); Basophils % (auto) 0.7 % (0.0-2.0); Eosinophils # (auto) 0.3 10 ^3/uL (0-0.8); Hematocrit 36.5 % (41.0-53.0); Hemoglobin 12.2 g/dL (13.5-17.5); Lymphocytes % (auto) 15.6 % (10.0-50.0); Mean Corpuscular Hemoglobin 32.4 pg (28.0-32.0); Mean Corpuscular Hgb Conc. 33.4 g/dL (32.0-36.0); Monocytes # (auto) 0.6 10 ^3/uL (0-1.3); Monocytes % (auto) 9.4 % (0.0-12.0); Neutrophils # (auto) 4.7 10 ^3/uL (1.6-8.6); Neutrophils % (auto) 70.3 % (37.0-80.0); Nucleated Red Blood Cells % 0.1 %; Red Blood Cells 3.76 10^6/uL (4.5-5.90); Red Cell Distribution Width 12.5 % (11.8-14.3); White Blood Cell 6.7 10^3/uL (4.4-10.8)
[2021-12-30 04:18] LABS: Albumin 1.5 g/dL (3.4-5.0); Calcium 7.9 mg/dL (8.5-10.1); Potassium 3.7 mmol/L (3.5-5.1)
[2021-12-30 04:23] LABS: BUN/Creatinine Ratio 13.2; Bilirubin, Direct 0.5 mg/dL (0-0.2); Bilirubin, Total 0.6 mg/dL (0.2-1.0); Total Protein 5.8 g/dL (6.4-8.2)
[2021-12-30] MEDS: PROPOFOL 100 ML IV SCH (04:50)
[2021-12-30] MEDS: LACTULOSE 20Gm/30ML SOLN NG SCH ×3 (06:07→22:00)
[2021-12-30] MEDS: PHENYTOIN SODIUM 50 MG/ML 2ML VIAL IV SCH ×3 (06:07→23:02)
[2021-12-30] MEDS: ACCU-CHEK COMFORT CURVE STRIP VI SCH ×4 (06:39→22:00)
[2021-12-30] MEDS: InsuLIN REG 1unit/0.01ml Soln (100units/ml) SC SCH ×4 (06:40→22:00)
[2021-12-30] MEDS: fentaNYL Drip 2500mCg/250mlNS 250 ML IV SCH (09:37)
[2021-12-30] MEDS: FAMOTIDINE (10MG/ML) 2ML VL IV SCH (10:16)
[2021-12-30] MEDS: ASPirin 81 mg TAB PO SCH (10:16)
[2021-12-30] MEDS: PHENobarbital SODIUM 130 MG/ML VL IV SCH (10:16)
[2021-12-30] MEDS: SODIUM CHLOR 0.9% PF (SALINE LOCK) 10ML VIAL/SYR IV SCH ×2 (10:16→23:02)
[2021-12-30 11:49] LABS: Hepatitis A Ab IgM Negative; Hepatitis B Core IgM Negative; Hepatitis C Antibody Negative (Negative)
[2021-12-30] MEDS: FOLIC ACID 1 MG, MULTIPLE VITAMIN 10 ML, MAGNESIUM SULF SDV 50% 8 MEQ, THIAMINE INJ 100... INJ SCH ×5 (16:40)
[2021-12-30] MEDS: MORPHINE SULFATE INJ 2 MG/ml SYRG IV PRN (19:05)
[2021-12-31] VITALS (12 sets, daily range): BP systolic 128–150; BP diastolic 77–88
[2021-12-31] MEDS: ACCU-CHEK COMFORT CURVE STRIP VI SCH (00:06)
[2021-12-31] MEDS: InsuLIN REG 1unit/0.01ml Soln (100units/ml) SC SCH (00:06)
[2021-12-31] MEDS: LACTULOSE 20Gm/30ML SOLN NG SCH (00:06)
[2021-12-31] MEDS: MIDAZOLAM HCL 2MG/2ML 2ml VIAL (1mg/ml) IV PRN ×2 (01:19→08:55)
[2021-12-31] MEDS: PHENYTOIN SODIUM 50 MG/ML 2ML VIAL IV SCH (05:34)
[2021-12-31] MEDS: FAMOTIDINE (10MG/ML) 2ML VL IV SCH (10:10)
[2021-12-31] MEDS: SODIUM CHLOR 0.9% PF (SALINE LOCK) 10ML VIAL/SYR IV SCH (10:10)
[2021-12-31] MEDS: PHENobarbital SODIUM 130 MG/ML VL IV SCH (10:10)
[2021-12-31] MEDS: MORPHINE SULFATE INJ 2 MG/ml SYRG IV PRN (10:24)
== END 2021-12-31 17:30 | DRG 720 ==
LOC: ER 17:08 → EDBD 23:39 → OVERFLOW 23:39 → EDUNIT# 23:39 → ICU WEST 12-08 09:57
PROVIDERS: ADMIT Nurse Practitioner Family; ATTEND Internal Medicine Pulmonary Disease
PROC: 5A1955Z Respiratory Ventilation, Greater than 96 Consecutive Hours (ICD-10-PCS; principal; 2021-12-07)
PROC: 0BH17EZ Insertion of Endotracheal Airway into Trachea, Via Natural or Artificial Opening (ICD-10-PCS; 2021-12-07)
PROC: B54MZZA Ultrasonography of Right Upper Extremity Veins, Guidance (ICD-10-PCS; 2021-12-13)
PROC: 05HB33Z Insertion of Infusion Device into Right Basilic Vein, Percutaneous Approach (ICD-10-PCS; 2021-12-13)
PROC: 02HV33Z Insertion of Infusion Device into Superior Vena Cava, Percutaneous Approach (ICD-10-PCS; 2021-12-17)
PROC: B548ZZA Ultrasonography of Superior Vena Cava, Guidance (ICD-10-PCS; 2021-12-17)
DX: A41.9 Sepsis, unspecified organism (principal); I63.511 Cerebral infarction due to unspecified occlusion or stenosis of right middle cerebral artery; J96.01 Acute respiratory failure with hypoxia; G92.8 Other toxic encephalopathy; E43 Unspecified severe protein-calorie malnutrition; G40.901 Epilepsy, unspecified, not intractable, with status epilepticus; J18.9 Pneumonia, unspecified organism; K72.90 Hepatic failure, unspecified without coma; E11.649 Type 2 diabetes mellitus with hypoglycemia without coma; G93.1 Anoxic brain damage, not elsewhere classified; T67.01XA Heatstroke and sunstroke, initial encounter; E87.6 Hypokalemia; E88.09 Other disorders of plasma-protein metabolism, not elsewhere classified; E78.5 Hyperlipidemia, unspecified; E66.9 Obesity, unspecified; I10 Essential (primary) hypertension; S80.822A Blister (nonthermal), left lower leg, initial encounter; R79.89 Other specified abnormal findings of blood chemistry; Y93.89 Activity, other specified; Y92.89 Other specified places as the place of occurrence of the external cause; Y99.8 Other external cause status; X30.XXXA Exposure to excessive natural heat, initial encounter; Z51.5 Encounter for palliative care; Z79.899 Other long term (current) drug therapy; Z68.27 Body mass index [BMI] 27.0-27.9, adult
CPT/HCPCS: 31500; 36415; 36569; 36600; 70450; 71045; 71260; 74177; 76705; 80048; 80053; 80061; 80074; 80076; 80184; 80185; 80202; 80307; 81001; 82010; 82140; 82248; 82550; 82805; 82962; 83036; 83605; 83690; 83735; 83874; 83880; 84100; 84439; 84484; 85025; 85379; 85384; 85610; 85730; 86850; 86900; 86901; 87040; 87070; 87077; 87081; 87186; 87205; 93005; 93306; 93886; 93970; 94002; 94003; 95819; 99291; A4618; G0378; J0696; J1100; J1815; J2250; J2543; J2704; J3480; J3490; J7042; J7060; P9047